=== PATIENT | female | born 1945 | race Caucasian/White ===

== ENCOUNTER → 2018-07-25 12:22 | Outpatient (CLI) | payer MEDICARE, SELFPAY ==
--- NOTE | 2018-07-25 | DI.MG.S_ITS ---
BILATERAL DIGITAL SCREENING MAMMOGRAM 3D/2D WITH CAD: 07/25/2018 CLINICAL: Routine screening. Family history of breast cancer. Comparison is made to exams dated: 05/26/2017 mammogram, 04/01/2016 mammogram, and 02/27/2015 mammogram - [facility]. The tissue of both breasts is extremely dense, which lowers the sensitivity of mammography. Current study was also evaluated with a Computer Aided Detection (CAD) system. There are benign post operative findings in the left breast. There also are benign calcifications in both breasts. No significant masses, calcifications, or other findings are seen in either breast. There has been no significant interval change. IMPRESSION: There is no mammographic evidence of malignancy. A 1 year screening mammogram is recommended. This exam was interpreted at Station ID: [id number]. NOTE: For mammograms, a report in lay terms will be sent to the patient. Approximately 15% of breast malignancies will not be visualized mammographically. In the management of a palpable breast mass, a negative mammogram must not discourage biopsy of a clinically suspicious lesion. Electronically Signed By: Mina lynn/arfita:07/25/2018 17:30:14 letter sent: Normal Exam ACR BI-RADS Category 2: Benign Finding(s) 3342F
== END ==
PROVIDERS: Family Provider Physician Assistant; PCP Physician Assistant; Visit Provider Physician Assistant
DX: Z12.31 Encounter for screening mammogram for malignant neoplasm of breast (principal); Z80.3 Family history of malignant neoplasm of breast
CPT/HCPCS: 77063; 77067

== ENCOUNTER → 2018-07-26 10:44 | Outpatient (CLI) | payer MEDICARE, SELFPAY ==
--- NOTE | 2018-07-26 | DI.RAD.S_ITS ---
PROCEDURE: XR HAND LT MIN 3V INDICATIONS: BILATERAL HAND PAIN TECHNIQUE: A 3 views of the hand(s) acquired. COMPARISON: None. FINDINGS: Bones: No fractures or dislocations. Carpal bones are normally aligned. No suspicious bony lesions. There is an corticated ossicle adjacent to the ulnar styloid. There is degenerative joint disease, moderate to severe at the first carpal metacarpal joint, and mild to moderate at multiple interphalangeal joints. Soft tissues: No suspicious soft tissue calcifications. IMPRESSION: 1. Degenerative disease. 2. Old trauma versus an accessory ossicle over the ulnar styloid. Dictated by: Ki Acevedo M.D. on 07/26/2018 at 15:06 Approved by: Ki Acevedo M.D. on 07/26/2018 at 15:09
--- NOTE | 2018-07-26 | DI.RAD.S_ITS ---
PROCEDURE: XR HAND RT MIN 3V INDICATIONS: BILATERAL HAND PAIN TECHNIQUE: 3 views of the hand(s) acquired. COMPARISON: None. FINDINGS: Bones: No fractures or dislocations. Carpal bones are normally aligned. No suspicious bony lesions. Your first MC joint degeneration and subluxation. Diffuse interphalangeal degenerative spurring. Lucency projecting in the distal phalanx of the right ring finger is indeterminate. This could represent cyst or erosion. Additional small marginal lucency seen at the IP joints of the index and middle finger as well as PIP joint of the index finger. Soft tissues: No suspicious soft tissue calcifications. 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 Lucencies at the DIP joints of the ring, index and middle finger as well as the DIP joint of the index finger, possibly erosions although technically nonspecific. Recommend clinical correlation. Dictated by: Barney Whitehead M.D. on 07/26/2018 at 14:12 Approved by: Barney Whitehead M.D. on 07/26/2018 at 14:19
== END ==
PROVIDERS: Family Provider Physician Assistant; PCP Physician Assistant; Visit Provider Physician Assistant
DX: M18.0 Bilateral primary osteoarthritis of first carpometacarpal joints (principal); M19.042 Primary osteoarthritis, left hand; S63.051A Subluxation of other carpometacarpal joint of right hand, initial encounter
CPT/HCPCS: 73130

== ENCOUNTER → 2018-08-05 10:26 | Outpatient (CLI) | payer MEDICARE, SELFPAY ==
[2018-08-05 11:32] LABS: Add Manual Diff / Slide Review NO; Basophils Absolute Auto 0 /uL (0-100); Basophils Percent Auto 0.4 % (0-2); Eosinophils Absolute Auto 100 /uL (0-450); Eosinophils Percent Auto 1.5 % (2-4); Hematocrit 36.2 % (36-46); Hemoglobin 12.4 g/dL (12.0-16.0); Lymphocytes Absolute Auto 1600 /uL (1100-4500); Lymphocytes Percent Auto 41.9 % (25-40); Mean Corpuscular HGB Conc 34.1 % (30-36); Mean Corpuscular Hemoglobin 33.4 PG (26-34); Mean Corpuscular Volume 97.8 fL (80-100); Monocytes Absolute Auto 300 /uL (0-900); Monocytes Percent Auto 8.1 % (3-14); Neutrophils Absolute Auto 1800 /uL (1500-7000); Neutrophils Percent Auto 48.1 % (50-75); Platelet Count 262 X10^3/uL (150-400); Red Cell Distribution Width 13.9 % (11.6-14.8); White Blood Cell Count 3.8 X10^3/uL (4.5-11.0)
[2018-08-05 11:48] LABS: Alanine Aminotransferase 32 IU/L (9-52); Albumin Globulin Ratio 1.7 (1.0-2.8); Alkaline Phosphatase 49 U/L (38-126); Aspartate Aminotransferase 27 IU/L (14-36); BUN Creatinine Ratio 27.1 (6-22); Bilirubin Total 0.5 mg/dL (0.2-1.3); Blood Urea Nitrogen 19 mg/dL (7-17); Calcium 10.4 mg/dL (8.4-10.2); Carbon Dioxide 29 mmol/L (22-32); Chloride 101 mmol/L (98-107); Estimated Glomerular Filt Rate > 60.0 mL/min (>60); Globulin 2.9 g/dL (1.7-4.1); Glucose 88 mg/dL (80-110); HEMOLYSIS < 15 (0-50); Potassium 4.4 mmol/L (3.4-5.1); Sodium 141 mmol/L (137-145); Total Protein 7.9 g/dL (6.3-8.2)
[2018-08-05 11:49] LABS: C-Reactive Protein Quant < 0.5 mg/dL (<1.0); Erythrocyte Sedimentation Rate 8 MM/HR (0-20); Rheumatoid Factor 24.5 IU/mL (<12.0)
[2018-08-05 11:59] LABS: Vitamin D 25 Hydroxy (D3) 84.6 ng/mL (30.0-100.0)
== END ==
PROVIDERS: PCP Physician Assistant; Visit Provider Physician Assistant
DX: M06.89 Other specified rheumatoid arthritis, multiple sites (principal); E55.9 Vitamin D deficiency, unspecified
CPT/HCPCS: 80053; 82306; 85025; 85651; 86140; 86200; 86430

== ENCOUNTER → 2018-08-11 15:13 | Outpatient (CLI) | payer MEDICARE, SELFPAY | PROVIDERS: PCP Physician Assistant; Visit Provider Physician Assistant | DX: M85.852 Other specified disorders of bone density and structure, left thigh (principal); Z78.0 Asymptomatic menopausal state; Z90.722 Acquired absence of ovaries, bilateral; Z87.891 Personal history of nicotine dependence | CPT/HCPCS: 77080 ==

== ENCOUNTER → 2018-09-28 11:36 | Outpatient (CLI) | payer MEDICARE, SELFPAY ==
[2018-09-28 12:36] LABS: Alanine Aminotransferase 17 IU/L (9-52); Albumin 4.6 g/dL (3.5-5.0); Albumin Globulin Ratio 1.8 (1.0-2.8); Alkaline Phosphatase 57 U/L (38-126); Aspartate Aminotransferase 26 IU/L (14-36); BUN Creatinine Ratio 21.4 (6-22); Bilirubin Total 0.5 mg/dL (0.2-1.3); Blood Urea Nitrogen 15 mg/dL (7-17); Calcium 9.7 mg/dL (8.4-10.2); Carbon Dioxide 29 mmol/L (22-32); Chloride 105 mmol/L (98-107); Estimated Glomerular Filt Rate > 60.0 mL/min (>60); Globulin 2.5 g/dL (1.7-4.1); Glucose 94 mg/dL (80-110); HEMOLYSIS < 15 (0-50); Potassium 3.7 mmol/L (3.4-5.1); Sodium 140 mmol/L (137-145); Total Protein 7.1 g/dL (6.3-8.2)
[2018-09-30 17:17] LABS: Parathyroid Hormone Int 19 pg/mL (14-64)
== END ==
PROVIDERS: PCP Physician Assistant; Visit Provider Physician Assistant
DX: E83.52 Hypercalcemia (principal)
CPT/HCPCS: 36415; 80053; 83970

== ENCOUNTER → 2018-12-13 08:03 | Outpatient (CLI) | payer MEDICARE, SELFPAY ==
--- NOTE | 2018-12-13 08:05 | DI.RAD.S_ITS ---
PROCEDURE: XR BONE SURVEY INDICATIONS: monoclonal gammopathy TECHNIQUE: Multiple views obtained of various bony structures as described below. COMPARISON: [facility], , CHEST 2 VIEW, 04/22/2015, 15:10. FINDINGS: Skull (lateral): Multiple lucencies are present. No fractures. Thoracic spine (AP, lateral): No suspicious bony lesions. No acute vertebral body compression fractures. Lumbar spine (AP, lateral): No suspicious bony lesions. Scoliosis. There is severe degenerative disc adisease at L2-L3 at L3-L4. No acute vertebral body compression fractures. Pelvis (AP): No suspicious bony lesions. No fractures. Overlying soft tissues appear unremarkable. Right and left humeri (AP): Small lucencies are suspected bilaterally. No fractures. Overlying soft tissues appear unremarkable. A small ossicle next to the right humeral head. Right and left femurs (AP): No suspicious bony lesions. No fractures. Overlying soft tissues appear unremarkable. IMPRESSION: Lucent lesions in skull and possibly humeri bilaterally. Dictated by: Ki Acevedo M.D. on 12/13/2018 at 9:18 Approved by: Ki Acevedo M.D. on 12/13/2018 at 9:34
== END ==
PROVIDERS: PCP Physician Assistant
DX: D47.2 Monoclonal gammopathy (principal); M89.9 Disorder of bone, unspecified
CPT/HCPCS: 77075

== ENCOUNTER → 2019-01-04 13:43 | Outpatient (CLI) | payer MEDICARE, SELFPAY ==
--- NOTE | 2019-01-04 13:46 | DI.MRI.S_ITS ---
PROCEDURE: MR BONE MARROW INDICATIONS: monoclonal gammopathy, ?lytic lesions TECHNIQUE: Noncontrast sagittal T1 spin echo and STIR through the spine; coronal T1 spin echo and STIR through the bony thorax, coronal T1 spin echo and STIR through the bony pelvis and femurs. COMPARISON: [facility], CR, XR BONE SURVEY, 12/13/2018, 8:12. FINDINGS: Image quality: Excellent. Spine: All visualized vertebral bodies are normally aligned. No acute or subacute vertebral body compression fractures. The bone marrow demonstrates no suspicious lesions or signal abnormalities except at the C4 and C5 vertebral bodies where on STIR imaging elevated marrow space fluid signal is present with suppressed fat signal (series 4 image 7 versus series 8 image 7). This indicates increased cellularity within those 2 segments of the mid cervical spine. A more characteristic appearance of degenerative disc disease with adjacent reactive marrow changes seen at L3-4 of the mid lumbosacral spine. The central spinal canal is of normal overall caliber. The visualized spinal cord demonstrates normal intramedullary signal. The conus is in expected position. No epidural or paravertebral soft tissue masses. Pelvis and hips: The bone marrow demonstrates normal signal throughout. No pelvic ring or sacral pathologic or insufficiency fractures. Physiologic amounts of hip joint fluid are present. No joint degeneration or soft tissue bursal fluid collections. Soft tissues: No free pelvic fluid. No pathologic pelvic or inguinal adenopathy. Visualized bowel loops appear normal in caliber. Limited images through the genitourinary tract demonstrate no abnormalities. The muscles demonstrate normal overall bulk and internal signal. IMPRESSION: No osteolytic lesions are seen through the axial and appendicular skeleton. Note is made of focal marrow space hypercellularity involving the C5 and C6 vertebral body marrow space, where mild to moderate degenerative disc disease is present. This degree of marrow abnormality in the setting of relatively mild degenerative change raises concern for marrow space neoplastic infiltration within this portion of the cervical spine. No soft tissue mass or epidural impingement is associated. Through the long bones there is a expected degree of mild heterogeneity of the marrow space for age. The degenerative disc disease at L3-4 is moderately severe, with reactive endplate and marrow space reaction abutting the disc space is an expected finding (in contrast to the appearance at the C5 and C6 vertebral bodies discussed above). Dictated by: Jaya Haq M.D. on 01/04/2019 at 16:18 Approved by: Jaya Haq M.D. on 01/04/2019 at 16:29
== END ==
PROVIDERS: PCP Physician Assistant
DX: D47.2 Monoclonal gammopathy (principal); M50.322 Other cervical disc degeneration at C5-C6 level; M51.36 Other intervertebral disc degeneration, lumbar region
CPT/HCPCS: 77084

== ENCOUNTER → 2019-01-11 14:40 | Oncology outpatient (ONC) | payer MEDICARE, SELFPAY ==
[2018-12-07 08:39] VITALS: BP 131/68; PULSE 57; RESP 18; TEMP 36.3; O2SAT 98
--- NOTE | 2018-12-07 09:08 | ONC.CONS ---
History of Present Illness - Data of Consult Consult date: 12/07/18 Primary Care Provider: Candis Patel PA-C - Consult Narrative Narrative: Diagnosis: Monoclonal gammopathy History of present illness: Nahomi Rae is a 73 year old female who is referred for further evaluation of a newly discovered monoclonal gammopathy. The patient reports that she had been feeling generally well but was having some pain and swelling in the joints in her hands. She was tested for rheumatoid factor and was positive. Because of this, she was referred to Rheumatology. As part of her evaluation, she had an SPEP done. It showed a trace paraprotein at 0.1 grams/deciliter. I do not see the results of any immuno fixation however. Urine did not show any monoclonal protein. Her creatinine and calcium were normal. White count was 5.1 platelets were normal, hemoglobin was 11.3 and hematocrit was 33.5 in September. In August, her hematocrit had been normal. The patient has not noticed any pain outside of her hands. She notes that her appetite has been good. She has not been losing any weight. No fevers chills or sweats. No shortness of breath or cough. No GI complaints. She has had a history of anemia associated with a a illness that involve sepsis and liver disease. She has since recovered. She has never required a transfusion. Her past medical history is notable for arthritis. She has been intolerant to aspirin and to anti-inflammatories in the past. She did have a history of a kidney infection that led to sepsis and liver problems but has recovered from that. She has had a prior cervical fusion. She has had a dislocation of her collarbone. She has otherwise been quite healthy. Her family history is notable for her father having had lung cancer. There is no family history of blood dyscrasias. Social history: She is a retired nurse. She has a distant history of smoking but quit at age 30. She does have about 2 drinks per night. CC: Power Ball MD Home Medications and Allergies Home Medications Medication Instructions Recorded Confirmed Type Dha 450 mg DAILY 12/07/18 12/07/18 History Dhea 25 mg DAILY 12/07/18 12/07/18 History Estratest DAILY 12/07/18 History Tumeric 1,000 mg DAILY 12/07/18 12/07/18 History calcium carbonate-vitamin D3 1 mg 2XW 12/07/18 12/07/18 History [Calcium 600 + D(3)] cholecalciferol (vitamin D3) 2,000 unit PO DAILY 12/07/18 12/07/18 History [Vitamin D3] diclofenac sodium 2 g TOPICAL BID 12/07/18 12/07/18 History glucosamine sulfate [Glucosamine] 750 mg PO BID 12/07/18 12/07/18 History latanoprost 0.005 % OPHTHALMIC (EYE) BID 12/07/18 12/07/18 History selenium 200 mg DAILY 12/07/18 12/07/18 History Allergies Allergy/AdvReac Type Severity Reaction Status Date / Time aspirin [ASPIRIN] Allergy Unknown Unverified 09/08/17 12:04 NSAIDS (Non-Steroidal Allergy Unknown Unverified 09/08/17 12:04 Anti-Inflamma [NSAIDS (NON-STEROIDAL ANTI-INFLAMMA] phenytoin [From DILANTIN] Allergy Unknown Unverified 09/08/17 12:04 Sulfa (Sulfonamide Allergy Unknown Unverified 09/08/17 12:04 Antibiotics) [SULFA (SULFONAMIDE ANTIBIOTICS)] Medical History - Medical, Surgical, Family History Surgical History: Surgical History (Updated 09/28/17 @ 05:40 by Conversion Provider) History of carpal tunnel repair Status post hysterectomy Status post rotator cuff repair Review of Systems - Patient Self-Reported Symptoms SR Musculoskeletal issues: Joint pain or swelling, Cold hands or feet Constitutional: normal activity level, no weight loss Cardiovascular: no chest pain Respiratory: no shortness of breath Gastrointestinal: no change in appetite Musculoskeletal: pain, swelling Integumentary (breast): no lumps Hematologic/Lymphatic: no enlarged lymph nodes Exam Vital signs: Vital Signs Temp Pulse Resp BP Pulse Ox 12/07/18 08:39 97.3 F L 57 L 18 131/68 98 Intake and Output 12/06/18 12/07/18 12/07/18 23:59 07:59 15:59 Other: Weight 44.5 kg Patient Weight 12/07/18 23:59 Weight 44.5 kg - Constitutional positive no acute distress, positive average body habitus - Routine HEENT Exam Head: Present: normocephalic, atraumatic Eye: Present: EOMI, PERRL. Absent: conjunctival icterus, scleral injection ENT: Present: mucous membranes moist, oropharynx clear - Routine Neck Exam Present: supple. Absent: lymphadenopathy, thyromegaly - Routine Respiratory Exam Present: Clear to auscultation bilaterally. Absent: rales, wheezes - Routine Cardiovascular Exam Present: RRR, S1, S2. Absent: murmur - Routine Abdominal Exam Present: soft, normoactive bowel sounds. Absent: tenderness, organomegaly, mass - Routine Extremities Exam Present: joint swelling. Absent: cyanosis, clubbing, edema - Routine Back/Spine Exam Back/Spine: Absent: vertebral tenderness - Routine Skin Exam Present: intact. Absent: petechiae, rash - Routine Neurological Exam Present: alert, oriented X3 - Routine Psychiatric Exam Present: normal affect, normal thought process Results - Imaging Additional studies: Procedures Closed [endoscopic] biopsy of large intestine (03/16/12) Assessment and Plan (1) Monoclonal gammopathy Current visit: Yes Status: Acute 73-year-old woman with newly discovered low level monoclonal protein at 0.1 grams/deciliter. On 1 occasion she had a mild anemia but just prior to that her hematocrit was normal. 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 We will plan on checking an immunofixation as well as serum free light chains. She will also need a skeletal survey. We will also repeat a CBC. She does least on 1 occasion have a mild anemia. Also past for iron deficiency, B12 or folate deficiency and a TSH. She will return to clinic in about 2 weeks for follow-up to review results.
[2018-12-07 09:52] LABS: Add Manual Diff / Slide Review NO; Basophils Absolute Auto 0 /uL (0-100); Basophils Percent Auto 0.3 % (0-2); Eosinophils Absolute Auto 100 /uL (0-450); Eosinophils Percent Auto 1.7 % (2-4); Hematocrit 34.7 % (36-46); Lymphocytes Absolute Auto 1200 /uL (1100-4500); Lymphocytes Percent Auto 37.3 % (25-40); Mean Corpuscular HGB Conc 34.5 % (30-36); Mean Corpuscular Hemoglobin 33.5 PG (26-34); Mean Corpuscular Volume 97.2 fL (80-100); Monocytes Absolute Auto 300 /uL (0-900); Monocytes Percent Auto 9.7 % (3-14); Neutrophils Absolute Auto 1600 /uL (1500-7000); Platelet Count 273 X10^3/uL (150-400); Red Blood Cell Count 3.57 X10^6/uL (4.0-5.2); Red Cell Distribution Width 13.5 % (11.6-14.8); White Blood Cell Count 3.2 X10^3/uL (4.5-11.0)
[2018-12-07 11:37] LABS: HEMOLYSIS < 15 (0-50); Iron 124 ug/dL (37-170)
[2018-12-07 11:47] LABS: Percent Iron Saturation 36 % (15-50); Total Iron Binding Capacity 342 ug/dL (265-497); Transferrin 291 mg/dL (206-381)
[2018-12-07 12:10] LABS: Thyroid Stimulating Hormone 2.67 uIU/mL (0.47-4.68)
[2018-12-07 12:44] LABS: Folate 15.1 ng/mL (2.76-20.0); Vitamin B12 625 pg/mL (239-931)
[2018-12-09 13:50] LABS: Free Kappa Light Chain 9.3 mg/L (3.3-19.4); Free Lambda 7.7 mg/L (5.7-26.3)
[2018-12-28 10:01] VITALS: BP 135/62; PULSE 62; RESP 18; TEMP 36.8; O2SAT 99
--- NOTE | 2018-12-28 10:28 | ONC.PN ---
PN -Subjective Interval history: Diagnosis: Monoclonal gammopathy Interval history: The patient is a 73-year-old woman who has recently been diagnosed with rheumatoid arthritis. As part of an evaluation she had an SPEP done. It showed a low level paraprotein at 0.1 grams/deciliter. Since her last visit here, she has started on Plaquenil. She has been tolerating it well thus far. She denies any new aches or pains. No fevers chills or sweats. No shortness of breath or cough. No unusual bleeding or bruising. She denies any other changes in her health. - Patient Self-Reported Symptoms SR Musculoskeletal issues: Joint pain or swelling, Cold hands or feet Home Medications and Allergies Home Medications Medication Instructions Recorded Confirmed Type Dha 450 mg DAILY 12/07/18 12/28/18 History Dhea 25 mg DAILY 12/07/18 12/28/18 History Estratest DAILY 12/07/18 History Tumeric 1,000 mg DAILY 12/07/18 12/07/18 History calcium carbonate-vitamin D3 1 mg 2XW 12/07/18 12/07/18 History [Calcium 600 + D(3)] cholecalciferol (vitamin D3) 2,000 unit PO DAILY 12/07/18 12/07/18 History [Vitamin D3] diclofenac sodium 2 g TOPICAL BID 12/07/18 12/07/18 History glucosamine sulfate [Glucosamine] 750 mg PO BID 12/07/18 12/07/18 History latanoprost 0.005 % OPHTHALMIC (EYE) BID 12/07/18 12/07/18 History selenium 200 mg DAILY 12/07/18 12/07/18 History hydroxychloroquine [Plaquenil] 200 mg PO DAILY 12/28/18 12/28/18 History Allergies Allergy/AdvReac Type Severity Reaction Status Date / Time aspirin [ASPIRIN] Allergy Unknown Unverified 09/08/17 12:04 NSAIDS (Non-Steroidal Allergy Unknown Unverified 09/08/17 12:04 Anti-Inflamma [NSAIDS (NON-STEROIDAL ANTI-INFLAMMA] phenytoin [From DILANTIN] Allergy Unknown Unverified 09/08/17 12:04 Sulfa (Sulfonamide Allergy Unknown Unverified 09/08/17 12:04 Antibiotics) [SULFA (SULFONAMIDE ANTIBIOTICS)] Exam Vital signs: Vital Signs Temp Pulse Resp BP Pulse Ox 12/28/18 10:01 98.3 F 62 18 135/62 99 Intake and Output 12/27/18 12/28/18 12/28/18 23:59 07:59 15:59 Other: Weight 43.7 kg Patient Weight 12/28/18 23:59 Weight 43.7 kg - Constitutional positive no acute distress, positive average body habitus Comments: She is not further examined. Results - Labs Laboratory Last Values WBC 3.2 X10^3/uL (4.5-11.0) L 12/07/18 09:21 RBC 3.57 X10^6/uL (4.0-5.2) L 12/07/18 09:21 Hgb 12.0 g/dL (12.0-16.0) 12/07/18 09:21 Hct 34.7 % (36-46) L 12/07/18 09:21 MCV 97.2 fL (80-100) 12/07/18 09:21 MCH 33.5 PG (26-34) 12/07/18 09:21 MCHC 34.5 % (30-36) 12/07/18 09:21 RDW 13.5 % (11.6-14.8) 12/07/18 09:21 Plt Count 273 X10^3/uL (150-400) 12/07/18 09:21 Neut % (Auto) 51.0 % (50-75) 12/07/18 09:21 Lymph % (Auto) 37.3 % (25-40) 12/07/18 09:21 [place] % (Auto) 9.7 % (3-14) 12/07/18 09:21 Eos % (Auto) 1.7 % (2-4) L 12/07/18 09:21 Baso % (Auto) 0.3 % (0-2) 12/07/18 09:21 Neut # (Auto) 1600 /uL (4507-5221) 12/07/18 09:21 Lymph # (Auto) 1200 /uL (1716-6437) 12/07/18 09:21 [place] # (Auto) 300 /uL (0-900) 12/07/18 09:21 Eos # (Auto) 100 /uL (0-450) 12/07/18 09:21 Baso # (Auto) 0 /uL (0-100) 12/07/18 09:21 Iron 124 ug/dL (37-170) 12/07/18 09:21 TIBC 342 ug/dL (265-497) 12/07/18 09:21 % Saturation 36 % (15-50) 12/07/18 09:21 Transferrin 291 mg/dL (206-381) 12/07/18 09:21 Ferritin 138.0 ng/mL (11.1-264) 12/07/18 09:21 Vitamin B12 625 pg/mL (239-931) 12/07/18 09:21 Folate 15.1 ng/mL (2.76-20.0) 12/07/18 09:21 TSH 2.67 uIU/mL (0.47-4.68) 12/07/18 09:21 Serum Immunofixation See note 12/07/18 09:21 Free [place] Light Chains 9.3 mg/L (3.3-19.4) 12/07/18 09:21 Free Lambda Light Chain 7.7 mg/L (5.7-26.3) 12/07/18 09:21 Free [place]/Lambda Ratio 1.20 (0.26-1.65) 12/07/18 09:21 - Imaging Additional studies: Skeletal survey was reviewed. The report indicated possible lytic lesions in the skull and in the humerus bilaterally, however by my review, I do not see any obvious lytic lesions. Assessment and Plan (1) Monoclonal gammopathy Current visit: Yes Status: Acute 73-year-old woman with newly discovered low level monoclonal protein at 0.1 grams/deciliter. On 1 occasion she had a mild anemia but just prior to that her hematocrit was normal. 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 Her serum free light chains were normal. Her skeletal survey I think is equivocal. Will plan on getting an MRI of the bone marrow to further evaluate. If that appears to be normal, I think we will just follow her expectantly. She could return here in 6 months for follow-up if that is the case. On the other hand, if there are lytic lesions apparent, she will likely require a bone marrow biopsy. She states that she would need sedation if she required a biopsy.
[2019-01-11 15:00] VITALS: BP 131/64; PULSE 65; RESP 18; TEMP 36.8; O2SAT 98
--- NOTE | 2019-01-11 15:29 | P.PNONC_ITS ---
PN -Subjective Interval history: Diagnosis: Monoclonal gammopathy Interval history: The patient is a 73-year-old woman who has recently been diagnosed with rheumatoid arthritis. As part of an evaluation she had an SPEP done. It showed a low level paraprotein at 0.1 grams/deciliter. Immunofixation showed 2 IgG kappa paraproteins. She did not have any renal insufficiency or hypercalcemia. On 1 occasion she had a very mild anemia that resolved. Skeletal survey showed questionable lytic lesion in the skull. A bone marrow MRI was done. Reviewed those results today. It showed no evidence of any lytic lesions. There were couple areas of increased marrow uptake 1 in the lumbar spine consistent with inflammation. There is another in the cervical spine. Metastatic disease could not be ruled out. The patient does have a history of a ruptured disc in the cervical spine area though. Today, she is feeling well. Her rheumatoid arthritis has been under good control. She notes some stiffness in the morning but is not having any pain. Appetite and energy level have been good. No fevers chills or sweats. She has not noted any adenopathy. She had her are planning a long camping trip. The be gone for about a month. She is also planning a 2nd opinion in [place] later this week. She denies any other changes in her health. - Patient Self-Reported Symptoms SR Musculoskeletal issues: Joint pain or swelling, Cold hands or feet Home Medications and Allergies Home Medications Medication Instructions Recorded Confirmed Type Dha 450 mg DAILY 12/07/18 12/28/18 History Dhea 25 mg DAILY 12/07/18 12/28/18 History Estratest DAILY 12/07/18 History Tumeric 1,000 mg DAILY 12/07/18 12/07/18 History calcium carbonate-vitamin D3 1 mg 2XW 12/07/18 12/07/18 History [Calcium 600 + D(3)] cholecalciferol (vitamin D3) 2,000 unit PO DAILY 12/07/18 12/07/18 History [Vitamin D3] diclofenac sodium 2 g TOPICAL BID 12/07/18 12/07/18 History glucosamine sulfate [Glucosamine] 750 mg PO BID 12/07/18 12/07/18 History latanoprost 0.005 % OPHTHALMIC (EYE) BID 12/07/18 12/07/18 History selenium 200 mg DAILY 12/07/18 12/07/18 History hydroxychloroquine [Plaquenil] 200 mg PO DAILY 12/28/18 12/28/18 History Allergies Allergy/AdvReac Type Severity Reaction Status Date / Time aspirin [ASPIRIN] Allergy Unknown Unverified 09/08/17 12:04 NSAIDS (Non-Steroidal Allergy Unknown Unverified 09/08/17 12:04 Anti-Inflamma [NSAIDS (NON-STEROIDAL ANTI-INFLAMMA] phenytoin [From DILANTIN] Allergy Unknown Unverified 09/08/17 12:04 Sulfa (Sulfonamide Allergy Unknown Unverified 09/08/17 12:04 Antibiotics) [SULFA (SULFONAMIDE ANTIBIOTICS)] Exam Vital signs: Vital Signs Temp Pulse Resp BP Pulse Ox 01/11/19 15:00 98.2 F 65 18 131/64 98 Intake and Output 01/10/19 01/11/19 01/11/19 23:59 07:59 15:59 Other: Weight 42.6 kg Patient Weight 01/11/19 23:59 Weight 42.6 kg - Constitutional positive no acute distress, positive average body habitus Comments: She is not further examined. Results - Labs Laboratory Last Values WBC 3.2 X10^3/uL (4.5-11.0) L 12/07/18 09:21 RBC 3.57 X10^6/uL (4.0-5.2) L 12/07/18 09:21 Hgb 12.0 g/dL (12.0-16.0) 12/07/18 09:21 Hct 34.7 % (36-46) L 12/07/18 09:21 MCV 97.2 fL (80-100) 12/07/18 09:21 MCH 33.5 PG (26-34) 12/07/18 09:21 MCHC 34.5 % (30-36) 12/07/18 09:21 RDW 13.5 % (11.6-14.8) 12/07/18 09:21 Plt Count 273 X10^3/uL (150-400) 12/07/18 09:21 Neut % (Auto) 51.0 % (50-75) 12/07/18 09:21 Lymph % (Auto) 37.3 % (25-40) 12/07/18 09:21 [place] % (Auto) 9.7 % (3-14) 12/07/18 09:21 Eos % (Auto) 1.7 % (2-4) L 12/07/18 09:21 Baso % (Auto) 0.3 % (0-2) 12/07/18 09:21 Neut # (Auto) 1600 /uL (1751-4872) 12/07/18 09:21 Lymph # (Auto) 1200 /uL (5463-7214) 12/07/18 09:21 [place] # (Auto) 300 /uL (0-900) 12/07/18 09:21 Eos # (Auto) 100 /uL (0-450) 12/07/18 09:21 Baso # (Auto) 0 /uL (0-100) 12/07/18 09:21 Iron 124 ug/dL (37-170) 12/07/18 09:21 TIBC 342 ug/dL (265-497) 12/07/18 09:21 % Saturation 36 % (15-50) 12/07/18 09:21 Transferrin 291 mg/dL (206-381) 12/07/18 09:21 Ferritin 138.0 ng/mL (11.1-264) 12/07/18 09:21 Vitamin B12 625 pg/mL (239-931) 12/07/18 09:21 Folate 15.1 ng/mL (2.76-20.0) 12/07/18 09:21 TSH 2.67 uIU/mL (0.47-4.68) 12/07/18 09:21 Serum Immunofixation See note 12/07/18 09:21 Free [place] Light Chains 9.3 mg/L (3.3-19.4) 12/07/18 09:21 Free Lambda Light Chain 7.7 mg/L (5.7-26.3) 12/07/18 09:21 Free [place]/Lambda Ratio 1.20 (0.26-1.65) 12/07/18 09:21 - Imaging Additional studies: Procedures Closed [endoscopic] biopsy of large intestine (03/16/12) Assessment and Plan (1) Monoclonal gammopathy Current visit: Yes Status: Acute 73-year-old woman with newly discovered low level monoclonal protein at 0.1 grams/deciliter. On 1 occasion she had a mild anemia but just prior to that her hematocrit was normal. Her serum free light chains were normal. Her skeletal survey I think is equivocal. MRI of the bone marrow does not show any lytic lesions. There are couple of focal areas with increased marrow signal at I think or most likely related to inflammation. She has no symptoms. I think that this is most consistent with MGUS. She will return to clinic in about 6 months for follow-up.
== END ==
PROVIDERS: PCP Physician Assistant
DX: D47.2 Monoclonal gammopathy (principal); M06.9 Rheumatoid arthritis, unspecified
CPT/HCPCS: 36415; 82607; 82728; 82746; 82784; 83540; 83550; 83883; 84155; 84443; 85025; 86334; 99205; 99213; 99215

== ENCOUNTER → 2019-08-11 07:39 | Outpatient (CLI) | payer MEDICARE, SELFPAY ==
--- NOTE | 2019-08-11 | DI.MG.S_ITS ---
BILATERAL DIGITAL SCREENING MAMMOGRAM 3D/2D WITH CAD: 08/11/2019 CLINICAL: Routine screening. Family history of breast cancer. Comparison is made to exams dated: 07/25/2018 mammogram, 05/26/2017 mammogram, and 04/01/2016 mammogram - [facility]. The tissue of both breasts is extremely dense, which lowers the sensitivity of mammography. Current study was also evaluated with a Computer Aided Detection (CAD) system. There are benign calcifications in both breasts. There also are benign post operative findings in the left breast. No significant masses, calcifications, or other findings are seen in either breast. There has been no significant interval change. IMPRESSION: There is no mammographic evidence of malignancy. A 1 year screening mammogram is recommended. This exam was interpreted at Station ID: [id number]. NOTE: For mammograms, a report in lay terms will be sent to the patient. Approximately 15% of breast malignancies will not be visualized mammographically. In the management of a palpable breast mass, a negative mammogram must not discourage biopsy of a clinically suspicious lesion. Electronically Signed By: Mina lynn/rafita:08/11/2019 10:26:49 letter sent: Normal Exam ACR BI-RADS Category 2: Benign Finding(s) 3342F
== END ==
PROVIDERS: PCP Physician Assistant; Referring Provider Physician Assistant; Visit Provider Physician Assistant
DX: Z12.31 Encounter for screening mammogram for malignant neoplasm of breast (principal); Z80.3 Family history of malignant neoplasm of breast
CPT/HCPCS: 77063; 77067

== ENCOUNTER → 2020-03-22 15:54 | Outpatient (CLI) | payer MEDICARE, SELFPAY ==
--- NOTE | 2020-03-22 | DI.RAD.S_ITS ---
PROCEDURE: XR HAND RT MIN 3V INDICATIONS: RHEUMATIOD ARTHRITIS TECHNIQUE: 3 views of the hand(s) acquired. COMPARISON: [facility], CR, XR HAND LT MIN 3V, 03/22/2020, 15:58. [facility], CR, XR HAND LT MIN 3V, 07/26/2018, 10:54. FINDINGS: Bones: No fractures or dislocations. Degenerative osteoarthritis is present at the interphalangeal joints, and also at the base of the 1st metacarpal. Overall the degree of degeneration is moderate to moderately severe, but erosive changes are not found. Carpal bones are normally aligned. No suspicious bony lesions. Soft tissues: No suspicious soft tissue calcifications. IMPRESSION: Moderate to moderately severe degenerative osteoarthritis without definite underlying erosive arthritis.. Dictated by: Jaya Haq M.D. on 03/22/2020 at 17:04 Approved by: Jaya Haq M.D. on 03/22/2020 at 17:07
--- NOTE | 2020-03-22 | DI.RAD.S_ITS ---
PROCEDURE: XR HAND LT MIN 3V INDICATIONS: RHEUMATIOD ARTHRITIS TECHNIQUE: 3 views of the hand(s) acquired. COMPARISON: [facility], CR, XR HAND LT MIN 3V, 07/26/2018, 10:54. [facility], CR, XR HAND RT MIN 3V, 07/26/2018, 10:53. FINDINGS: Bones: No fractures or dislocations. Carpal bones are normally aligned. No suspicious bony lesions. Severe degenerative osteoarthritic change at the base of the 1st metacarpal is present, no erosive changes are found. Soft tissues: No suspicious soft tissue calcifications. 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 Moderate osteoarthritis elsewhere. No definite erosive arthritis. Dictated by: Jaya aHq M.D. on 03/22/2020 at 17:03 Approved by: Jaya Haq M.D. on 03/22/2020 at 17:03
[2020-03-22 17:13] LABS: Erythrocyte Sedimentation Rate 7 MM/HR (0-20)
[2020-03-22 17:20] LABS: Alanine Aminotransferase 19 IU/L (<35); Albumin 4.6 g/dL (3.5-5.0); Albumin Globulin Ratio 1.8 (1.0-2.8); Alkaline Phosphatase 52 U/L (38-126); Aspartate Aminotransferase 30 IU/L (14-36); BUN Creatinine Ratio 22.4 (6-22); Bilirubin Total 0.3 mg/dL (0.2-1.3); Blood Urea Nitrogen 15 mg/dL (7-17); Calcium 9.4 mg/dL (8.4-10.2); Carbon Dioxide 30 mmol/L (22-32); Chloride 104 mmol/L (98-107); Estimated Glomerular Filt Rate > 60.0 mL/min (>60); Globulin 2.6 g/dL (1.7-4.1); Glucose 96 mg/dL (80-110); HEMOLYSIS < 15 (0-50); Potassium 4.1 mmol/L (3.4-5.1); Sodium 139 mmol/L (137-145); Total Protein 7.2 g/dL (6.3-8.2)
[2020-03-22 17:26] LABS: C-Reactive Protein Quant < 0.5 mg/dL (<1.0)
== END ==
PROVIDERS: PCP Physician Assistant; Referring Provider Internal Medicine Rheumatology; Visit Provider Internal Medicine Rheumatology
DX: M05.79 Rheumatoid arthritis with rheumatoid factor of multiple sites without organ or systems involvement (principal); M19.042 Primary osteoarthritis, left hand
CPT/HCPCS: 36415; 73130; 80053; 85651; 86140

== ENCOUNTER → 2020-09-03 15:32 | Outpatient (CLI) | payer MEDICARE, OTHER, SELFPAY ==
--- NOTE | 2020-09-03 | DI.MG.S_ITS ---
BILATERAL DIGITAL SCREENING MAMMOGRAM 3D/2D WITH CAD: 09/03/2020 CLINICAL: Routine screening. Family history of breast cancer. Comparison is made to exams dated: 08/11/2019 mammogram, 07/25/2018 mammogram, and 05/26/2017 mammogram - [facility]. The tissue of both breasts is extremely dense, which lowers the sensitivity of mammography. Current study was also evaluated with a Computer Aided Detection (CAD) system. There are benign calcifications in both breasts. There also are benign post operative findings in the left breast. No significant masses, calcifications, or other findings are seen in either breast. There has been no significant interval change. IMPRESSION: BENIGN There is no mammographic evidence of malignancy. A 1 year screening mammogram is recommended. This exam was interpreted at Station ID: [id number]. NOTE: For mammograms, a report in lay terms will be sent to the patient. Approximately 15% of breast malignancies will not be visualized mammographically. In the management of a palpable breast mass, a negative mammogram must not discourage biopsy of a clinically suspicious lesion. Electronically Signed By: Mina lynn/rafita:09/03/2020 16:53:54 letter sent: Normal Exam ACR BI-RADS Category 2: Benign Finding(s) 3342F
== END ==
PROVIDERS: PCP Physician Assistant; Referring Provider Physician Assistant; Visit Provider Physician Assistant
DX: Z12.31 Encounter for screening mammogram for malignant neoplasm of breast (principal); Z80.3 Family history of malignant neoplasm of breast
CPT/HCPCS: 77063; 77067

== ENCOUNTER → 2020-11-11 09:47 | Outpatient (CLI) | payer MEDICARE, OTHER, SELFPAY ==
[2020-11-11 10:40] LABS: COVID19 -Nasal RAPID Negative (Negative)
== END ==
PROVIDERS: PCP Physician Assistant; Visit Provider Surgery
DX: Z20.822 Contact with and (suspected) exposure to COVID-19 (principal)
CPT/HCPCS: 87635; C9803

== ENCOUNTER 2020-11-12 07:27 | Day surgery (SDC) | payer MEDICARE, OTHER, SELFPAY ==
[2020-11-12 07:51] VITALS: BP 145/70; PULSE 57; RESP 16; TEMP 36.6; O2SAT 100; BMI 18.3
--- NOTE | 2020-11-12 08:04 | PM.HP.1 ---
History of Present Illness History of Present Illness Date Patient Seen: 11/12/20 Time Patient Seen: 08:04 Chief complaint: SCREENING COLONOSCOPY Narrative: Here for screening colonoscopy. This is her second scope, the last was 9 years ago. No symptoms and no family history for colon cancer. She is retired ER nurse. 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 [facility] Medications and Allergies Home Medications Medication Instructions Recorded Confirmed Type Dha 450 mg DAILY 12/07/18 12/28/18 History Dhea 25 mg DAILY 12/07/18 11/12/20 History Estratest DAILY 12/07/18 History Tumeric 1,000 mg DAILY 12/07/18 12/07/18 History calcium carbonate-vitamin D3 1 mg 2XW 12/07/18 11/12/20 History [Calcium 600 + D(3)] cholecalciferol (vitamin D3) 2,000 unit PO DAILY 12/07/18 11/12/20 History [Vitamin D3] diclofenac sodium 2 g TOPICAL BID 12/07/18 12/07/18 History glucosamine sulfate [Glucosamine] 750 mg PO BID 12/07/18 12/07/18 History latanoprost 0.005 % OPHTHALMIC (EYE) BID 12/07/18 12/07/18 History selenium 200 mg DAILY 12/07/18 12/07/18 History hydroxychloroquine [Plaquenil] 200 mg PO DAILY 12/28/18 12/28/18 History Allergies Allergy/AdvReac Type Severity Reaction Status Date / Time aspirin [ASPIRIN] Allergy Unknown Verified 11/12/20 07:45 NSAIDS (Non-Steroidal Allergy Unknown Verified 11/12/20 07:45 Anti-Inflamma [NSAIDS (NON-STEROIDAL ANTI-INFLAMMA] phenytoin [From DILANTIN] Allergy Unknown Verified 11/12/20 07:45 Sulfa (Sulfonamide Allergy Unknown Verified 11/12/20 07:45 Antibiotics) [SULFA (SULFONAMIDE ANTIBIOTICS)] Review of Systems Review of Systems ROS: Yes All systems reviewed with the patient and are negative except as otherwise documented Exam Const General: cooperative and frail appearing Nutritional Appearance: thin Orientation: alert and oriented x3 HENMT Head: normal to inspection Eyes General: appearance normal, both eyes and all related structures Sclera: sclerae normal Neck Neck: trachea midline Chest Chest: normal inspection of the chest Resp Effort & Inspection: normal respiratory effort and able to speak in complete sentences Auscultation: clear to auscultation bilaterally Cardio Rate: regular rate Rhythm: regular rhythm GI Inspection: normal to inspection Palpation: soft Skin General: no rashes or lesions noted Neuro General: patient alert and patient oriented x3 Cognition: normal cognition Speech: speech normal Extrem General: normal to inspection Psych Appearance: grossly normal Thought Content: normal Judgment: judgment good Assessment & Plan Assessment & Plan narrative: Colon cancer screening for average risk using colonoscopy and moderate sedation COVID-19 COVID-19 status: Negative Time Spent With Patient Time with patient: 15-24 minutes
[2020-11-12] MEDS: LACTATED RINGERS 1,000 ML 75 ML IV (08:09)
--- NOTE | 2020-11-12 08:18 | P.OP.ENDO_ITS ---
Operative Date/Time/Diagnoses Date of procedure: 11/12/20 Time of procedure: 08:18 Pre-op diagnosis: colon cancer screening average risk Post-op diagnosis: same Procedure & Clinicians Study performed: colonoscopy Same procedure as scheduled: Yes Indications: screening for colon cancer Surgeon: Yoli Peterson Procedure Notes SCOAP/Timeout: prior to procedure Procedure in detail: Preop diagnosis: Colon cancer screening Postop diagnosis: The same Operative procedure: Colonoscopy with moderate sedation Surgeon: Senait Peterson MD Anesthetic: Fentanyl 50 mcg and Versed 5 mg Findings: Normal colonoscopy. No diverticula, no polyps. Bowel prep adequate Procedure: Patient is placed in a lateral position. Rectal exam performed showing normal tone no masses. Colonoscope inserted into the rectum and advan dickson to the ileocecal valve with minimal difficulty. Insufflation and extraction of the scope had the above findings. Retroflex was included in the rectum. Impression: Normal colonoscopy, no polyps, no diverticulosis. No mucosal abnormalities Plan: Repeat colonoscopy in 10 years unless otherwise indicated by change in family history or clinical condition Scope withdrawal time: 4 Sedation minutes: 16 Specimen(s): none sent Complications: none Impression: no polyps, no diverticula Post-procedure Recommendations: Colonscopy in 10 years and Continue medication(s) Plan for aftercare: home Follow up: as needed Disposition: PACU
[2020-11-12] MEDS: fentaNYL 250 MCG/5 ML INJ IV (08:27)
[2020-11-12] MEDS: MIDAZOLAM 5 MG/5 ML VIAL IV (08:31)
[2020-11-12 08:41] VITALS: BP 106/50; PULSE 55; RESP 12; TEMP 36.6; O2SAT 96
[2020-11-12 08:46] VITALS: BP 102/51; PULSE 50; RESP 10; O2SAT 97
[2020-11-12 08:51] VITALS: BP 99/50; PULSE 51; RESP 15; O2SAT 98
[2020-11-12 09:08] VITALS: BP 102/52; PULSE 54; RESP 15; TEMP 36.9; O2SAT 95
[2020-11-12 09:18] VITALS: BP 121/77; PULSE 56; RESP 16; TEMP 36.6; O2SAT 99
--- NOTE | 2020-11-12 09:26 | SUR.PHASEII ---
Stable, ready to go, left in stable condition.
== END 2020-11-12 09:26 | disposition home or self-care (01) ==
PROVIDERS: PCP Physician Assistant; Referring Provider Surgery; Visit Provider Surgery
PROC: 0DJD8ZZ Inspection of Lower Intestinal Tract, Via Natural or Artificial Opening Endoscopic (ICD-10-PCS; CPT 45378; principal; 2020-11-12 08:30)
DX: Z12.11 Encounter for screening for malignant neoplasm of colon (principal)
CPT/HCPCS: G0121; 99152; J2250; J3010

== ENCOUNTER → 2021-03-21 14:58 | Outpatient (CLI) | payer MEDICARE, OTHER, SELFPAY ==
[2021-03-21 17:52] LABS: Alanine Aminotransferase 21 IU/L (<35); Aspartate Aminotransferase 34 IU/L (14-36)
== END ==
PROVIDERS: PCP Physician Assistant; Referring Provider Internal Medicine Rheumatology; Visit Provider Internal Medicine Rheumatology
DX: M05.79 Rheumatoid arthritis with rheumatoid factor of multiple sites without organ or systems involvement (principal)
CPT/HCPCS: 36415; 84450; 84460

== ENCOUNTER → 2021-08-28 09:51 | Outpatient (CLI) | payer MEDICARE, OTHER, SELFPAY ==
--- NOTE | 2021-08-28 | DI.RAD.S_ITS ---
PROCEDURE: XR THORACIC SPINE 3V INDICATIONS: Pain in thoracic spine/Cervicalgia TECHNIQUE: 3 views of the thoracic spine were acquired. COMPARISON: [facility], CR, XR LUMBAR SPINE 2-3V, 08/28/2021, 9:48. FINDINGS: Bones: No fractures or dislocations. No suspicious bony lesions. 12 pairs of ribs are noted, and appear intact where visualized. Mild degenerative disease scattered in thoracic spine. Moderate to severe degenerative disc disease in upper lumbar spine. Soft tissues: No paravertebral stripe thickening. There is a calcified nodule in the right upper lung. IMPRESSION: 1. Mild degenerative disc disease disc disease. 2. A calcified nodule in the right lung, likely a calcified granuloma. Dictated by: Ki Acevedo M.D. on 08/28/2021 at 11:48 Approved by: Ki Acevedo M.D. on 08/28/2021 at 11:49
--- NOTE | 2021-08-28 | DI.RAD.S_ITS ---
PROCEDURE: XR CERVICAL SPINE 2V OR 3V INDICATIONS: Pain in thoracic spine/Cervicalgia TECHNIQUE: 3 view(s) of the cervical spine were acquired. COMPARISON: [facility], CR, XR THORACIC SPINE 3V, 08/28/2021, 9:48. FINDINGS: Bones: There is kyphosis, otherwise normal alignment. Fusion of C6-C7. No fractures or dislocations to the T1 level. The lateral masses of C1 appear intact on the odontoid view. No suspicious bony lesions. Severe degenerative disease at C3-C4, C4-C5 and C5-C6, moderate degenerative disease at C7-T1. Bilateral facet arthropathy, moderate to severe at C3-C4, C4-C5. C5-C6. Soft tissues: No prevertebral soft tissue swelling. IMPRESSION: 1. Degenerative disc and facet disease in cervical spine. Dictated by: Ki Acevedo M.D. on 08/28/2021 at 10:44 Approved by: Ki Acevedo M.D. on 08/28/2021 at 11:33
--- NOTE | 2021-08-28 | DI.RAD.S_ITS ---
PROCEDURE: XR LUMBAR SPINE 2-3V INDICATIONS: Pain in thoracic spine/Cervicalgia TECHNIQUE: 3 views of the lumbar spine were acquired. COMPARISON: [facility], CR, XR BONE SURVEY, 12/13/2018, 8:12. [facility], CR, XR THORACIC SPINE 3V, 08/28/2021, 9:48. FINDINGS: Bones: 5 rrc-ldp-gbbsrjg vertebrae are present. There is normal bony alignment. No vertebral body compression fractures. No suspicious bony lesions. Moderate dextroscoliosis with the apex at L3. There is severe degenerative joint disease at L2-L3 and L3-L4, and moderate degenerative joint disease at L1-L2 and L4-L5. Moderate facet arthropathy at L4-L5 and L5-S1. Soft tissues: Overlying bowel gas pattern is normal. No suspicious soft tissue calcifications. There is a large amount of stool in colon. IMPRESSION: 1. Moderate scoliosis. 2. Degenerative disc and facet disease in lumbar spine. Dictated by: Ki Acevedo M.D. on 08/28/2021 at 14:22 Approved by: Ki Acevedo M.D. on 08/28/2021 at 14:24
== END ==
PROVIDERS: PCP Physician Assistant; Referring Provider Physician Assistant; Visit Provider Physician Assistant
DX: M50.31 Other cervical disc degeneration, high cervical region (principal); M47.812 Spondylosis without myelopathy or radiculopathy, cervical region; M51.34 Other intervertebral disc degeneration, thoracic region; M47.814 Spondylosis without myelopathy or radiculopathy, thoracic region; J98.4 Other disorders of lung
CPT/HCPCS: 72040; 72072; 72100

== ENCOUNTER → 2021-09-05 10:23 | Outpatient (CLI) | payer MEDICARE, OTHER, SELFPAY ==
--- NOTE | 2021-09-05 | DI.MG.S_ITS ---
BILATERAL DIGITAL SCREENING MAMMOGRAM 3D/2D WITH CAD: 09/05/2021 CLINICAL: Routine screening. Family history of breast cancer. Comparison is made to exams dated: 09/03/2020 mammogram, 08/11/2019 mammogram, and 07/25/2018 mammogram - [facility]. The tissue of both breasts is extremely dense, which lowers the sensitivity of mammography. Current study was also evaluated with a Computer Aided Detection (CAD) system. There are benign calcifications in both breasts. No significant masses, calcifications, or other findings are seen in either breast. There has been no significant interval change. IMPRESSION: BENIGN There is no mammographic evidence of malignancy. A 1 year screening mammogram is recommended. This exam was interpreted at Station ID: [id number]. NOTE: For mammograms, a report in lay terms will be sent to the patient. Approximately 15% of breast malignancies will not be visualized mammographically. In the management of a palpable breast mass, a negative mammogram must not discourage biopsy of a clinically suspicious lesion. Electronically Signed By: Arslan Claros acr/oscarrad:09/05/2021 11:03:21 letter sent: Normal Exam ACR BI-RADS Category 2: Benign Finding(s) 3342F
== END ==
PROVIDERS: PCP Physician Assistant; Referring Provider Physician Assistant; Visit Provider Physician Assistant
DX: Z12.31 Encounter for screening mammogram for malignant neoplasm of breast (principal); Z80.3 Family history of malignant neoplasm of breast
CPT/HCPCS: 77063; 77067

== ENCOUNTER → 2021-09-30 09:20 | Outpatient (CLI) | payer MEDICARE, OTHER, SELFPAY ==
--- NOTE | 2021-09-30 | DI.US.S_ITS ---
PROCEDURE: US ABDOMEN LIMITED INDICATIONS: ELEVATED LFTS TECHNIQUE: Real-time focused scanning was performed of the abdomen, with image documentation. COMPARISON: None. FINDINGS: The liver is normal in size and demonstrates no focal lesions. No findings of gallstones or sludge are seen. The gallbladder wall is not thickened, measuring 3 mm or less. No specific pericholecystic fluid is seen. The sonographic Marlow sign is negative. There is no biliary dilatation, the common bile duct measures 4 mm. No significant pancreatic abnormality is seen on these images. Incidental note is made of to prominent left kidney cyst measuring up to 6.9 cm and up to 5.3 cm, respectively. IMPRESSION: Normal appearing liver by ultrasound. The gallbladder demonstrates a normal sonographic appearance. No biliary dilatation is seen. Incidental note is made of 2 prominent simple appearing left renal cysts. Dictated by: Jean-Pierre Osborne M.D. on 09/30/2021 at 9:08 Approved by: Jean-Pierre Osborne M.D. on 09/30/2021 at 9:09
== END ==
PROVIDERS: PCP Physician Assistant; Referring Provider Physician Assistant; Visit Provider Physician Assistant
DX: R79.89 Other specified abnormal findings of blood chemistry (principal); N28.1 Cyst of kidney, acquired
CPT/HCPCS: 76705

== ENCOUNTER → 2021-11-13 16:05 | Outpatient (CLI) | payer MEDICARE, OTHER, SELFPAY ==
[2021-11-13 16:48] LABS: Appearance Urine UA CLEAR; Bilirubin Urine UA NEGATIVE (NEGATIVE); Color Urine UA YELLOW; Glucose Urine UA NEGATIVE (Negative); Ketones Urine UA NEGATIVE (NEGATIVE); Leukocyte Esterase Urine UA NEGATIVE (NEGATIVE); Nitrite Urine UA NEGATIVE (Negative); Occult Blood Urine UA NEGATIVE (Negative); Protein Urine UA NEGATIVE (Negative); Specific Gravity Urine UA 1.015 (1.000-1.035); Urobilinogen Urine UA 0.2 E.U./dL (0.2)
[2021-11-13 16:51] LABS: pH Urine UA 6.5 (4.5-8.0)
[2021-11-13 18:28] LABS: Bacteria Urine None Seen; Culture Indicated Urine Cult Not Indicated; RBC Urine None Seen (0-5/HPF); Squamous Epithelial Cell Urine None Seen (0-5/HPF); WBC Urine None Seen (0-5/HPF)
== END ==
PROVIDERS: PCP Physician Assistant; Referring Provider Neurological Surgery; Visit Provider Neurological Surgery
DX: Z01.812 Encounter for preprocedural laboratory examination (principal)
CPT/HCPCS: 81001

== ENCOUNTER → 2022-08-10 15:47 | Outpatient (CLI) | payer MEDICARE, OTHER, SELFPAY ==
--- NOTE | 2022-08-10 | DI.MRI.S_ITS ---
PROCEDURE: MR KNEE LT WO CON INDICATIONS: Effusion, left knee TECHNIQUE: Noncontrast sagittal PD fast spin echo and T2 fast spin echo with fat saturation, sagittal 3-D FLASH with fat saturation; coronal T1 spin echo and PD fast spin echo with fat saturation, and axial PD fast spin echo with fat saturation through the knee. COMPARISON: [facility], MR, KNEE WITHOUT CONTRAST, 09/04/2015, 17:56. FINDINGS: Image quality: Excellent. Menisci: Oblique tear involving posterior horn of medial meniscus is seen extending to inferior articulating surface. There is no focal lateral meniscal tear. The meniscal root ligaments appear intact. Cruciate ligaments: The anterior cruciate ligament is thickened with intrasubstance T2 hyperintense signal. The posterior cruciate ligament also appears thickened. Medial structures: The medial collateral ligament appears intact. The posterior oblique ligament, semimembranosus tendon insertions, oblique popliteal ligament, and meniscocapsular junction appear intact. Visualized portions of the pes anserinus tendons appear normal. No abnormal bursal fluid. Lateral structures: The lateral collateral ligament, long and short heads of the biceps femoris tendon appear intact. The popliteus tendon appears normal; the popliteofibular ligament appears intact. Iliotibial band appears normal. Anterior structures: The quadriceps and patellar tendons appear intact. Patellar alignment is normal. No femoral trochlear dysplasia or ventral trochlear prominence. No edema in the infrapatellar fat pad. Bones and cartilage: No bone marrow contusions or fractures. Hunj-to-wjokyvrd tricompartmental osteoarthritis and chondromalacia is seen most notably in medial femoral tibial compartment and lateral portion of patellofemoral compartment near apex. Joint space: There is small knee joint fluid. There is a small Yu's cyst. Normal appearing synovial plicae are incidentally noted. IMPRESSION: 1. Oblique tear involving posterior horn of medial meniscus extending to inferior articulating surface. No focal lateral meniscal tear. 2. Moderate grade intrasubstance partial-thickness tear involving anterior cruciate ligament. Low-grade posterior cruciate ligament sprain. No full-thickness cruciate ligament rupture. 3. Wzma-xj-uukxhhue tricompartmental osteoarthritis and chondromalacia most notably in medial femoral tibial compartment and lateral portion of patellofemoral compartment as above. 4. Small amount of joint effusion and a small popliteal cyst. No gross loose bodies. Dictated by: Jayjay Mayers M.D. on 08/10/2022 at 16:50 Approved by: Jayjay Mayers M.D. on 08/11/2022 at 9:38
== END ==
PROVIDERS: PCP Internal Medicine; Referring Provider Physician Assistant; Visit Provider Physician Assistant
DX: S83.242A Other tear of medial meniscus, current injury, left knee, initial encounter (principal); S83.512A Sprain of anterior cruciate ligament of left knee, initial encounter; S83.522A Sprain of posterior cruciate ligament of left knee, initial encounter; M17.12 Unilateral primary osteoarthritis, left knee; M22.42 Chondromalacia patellae, left knee; M71.22 Synovial cyst of popliteal space [Baker], left knee; M25.462 Effusion, left knee
CPT/HCPCS: 73721

== ENCOUNTER → 2022-09-19 | Outpatient (CLI) | payer MEDICARE, OTHER, SELFPAY ==
--- NOTE | 2022-09-19 11:02 | DI.MG.S_ITS ---
BILATERAL DIGITAL SCREENING MAMMOGRAM 3D/2D WITH CAD: 09/19/2022 CLINICAL: Routine screening. Family history of breast cancer. Comparison is made to exams dated: 09/05/2021 mammogram, 09/03/2020 mammogram, and 08/11/2019 mammogram - [facility]. Both breasts are extremely dense, which lowers the sensitivity of mammography (category d />75% glandular tissue). Current study was also evaluated with a Computer Aided Detection (CAD) system. There are benign calcifications in both breasts. No significant masses, calcifications, or other findings are seen in either breast. There has been no significant interval change. IMPRESSION: BENIGN There is no mammographic evidence of malignancy. A 1 year screening mammogram is recommended. Based on the Tyrer Cuzick model (a risk assessment model) the patient's lifetime risk is 10.8% and her 10 year risk is 0.0%. According to the ACR, ACS, and NCCN guidelines, an annual breast MRI exam along with mammogram is recommended if the patient's lifetime risk is 20% or greater. This exam was interpreted at Station ID: [id number]. NOTE: For mammograms, a report in lay terms will be sent to the patient. Approximately 15% of breast malignancies will not be visualized mammographically. In the management of a palpable breast mass, a negative mammogram must not discourage biopsy of a clinically suspicious lesion. Electronically Signed By: Baltazar lopez/rafita:09/21/2022 07:55:41 letter sent: Normal Exam ACR BI-RADS Category 2: Benign Finding(s) 3342F
== END ==
PROVIDERS: PCP Internal Medicine; Referring Provider Internal Medicine; Visit Provider Internal Medicine
DX: Z12.31 Encounter for screening mammogram for malignant neoplasm of breast (principal); Z80.3 Family history of malignant neoplasm of breast
CPT/HCPCS: 77063; 77067

== ENCOUNTER → 2023-03-22 12:27 | Outpatient (CLI) | payer MEDICARE, OTHER, SELFPAY ==
[2023-03-22 14:29] LABS: Add Manual Diff / Slide Review NO; Basophils Absolute Auto 0 /uL (0-100); Basophils Percent Auto 0.3 % (0-2); Eosinophils Absolute Auto 0 /uL (0-450); Eosinophils Percent Auto 1.1 % (2-4); Hematocrit 29.7 % (36-46); Hemoglobin 10.3 g/dL (12.0-16.0); Lymphocytes Absolute Auto 1200 /uL (1100-4500); Lymphocytes Percent Auto 30.8 % (25-40); Mean Corpuscular HGB Conc 34.7 % (30-36); Mean Corpuscular Hemoglobin 35.6 PG (26-34); Mean Corpuscular Volume 102.7 fL (80-100); Monocytes Absolute Auto 400 /uL (0-900); Monocytes Percent Auto 9.5 % (3-14); Neutrophils Absolute Auto 2300 /uL (1500-7000); Neutrophils Percent Auto 58.3 % (50-75); Platelet Count 237 X10^3/uL (150-400); Red Blood Cell Count 2.89 X10^6/uL (4.0-5.2); Red Cell Distribution Width 15.2 % (11.6-14.8); White Blood Cell Count 3.9 X10^3/uL (4.5-11.0)
[2023-03-22 14:46] LABS: Alanine Aminotransferase 31 IU/L (<35); Albumin 4.7 g/dL (3.5-5.0); Alkaline Phosphatase 75 U/L (38-126); Aspartate Aminotransferase 41 IU/L (14-36); BUN Creatinine Ratio 31.7 (6-22); Bilirubin Total 0.4 mg/dL (0.2-1.3); Blood Urea Nitrogen 19 mg/dL (7-17); C-Reactive Protein Quant < 0.5 mg/dL (<1.0); Calcium 9.9 mg/dL (8.4-10.2); Carbon Dioxide 26 mmol/L (22-32); Chloride 103 mmol/L (98-107); Estimated Glomerular Filt Rate > 60 mL/min (>60); Globulin 2.4 g/dL (1.7-4.1); Glucose 93 mg/dL (80-110); HEMOLYSIS < 15 (0-50); Potassium 4.4 mmol/L (3.4-5.1); Sodium 137 mmol/L (137-145); Total Protein 7.1 g/dL (6.3-8.2)
[2023-03-22 15:01] LABS: Erythrocyte Sedimentation Rate 10 MM/HR (0-20)
== END ==
PROVIDERS: PCP Internal Medicine; Referring Provider Physician Assistant; Visit Provider Physician Assistant
DX: M05.79 Rheumatoid arthritis with rheumatoid factor of multiple sites without organ or systems involvement (principal)
CPT/HCPCS: 36415; 80053; 85025; 85651; 86140

== ENCOUNTER → 2023-06-25 07:00 | Outpatient (CLI) | payer MEDICARE, OTHER, SELFPAY ==
[2023-06-25 07:35] LABS: Add Manual Diff / Slide Review NO; Basophils Absolute Auto 0 /uL (0-100); Basophils Percent Auto 0.4 % (0-2); Eosinophils Absolute Auto 100 /uL (0-450); Hematocrit 30.1 % (36-46); Hemoglobin 10.4 g/dL (12.0-16.0); Lymphocytes Absolute Auto 1500 /uL (1100-4500); Lymphocytes Percent Auto 46.1 % (25-40); Mean Corpuscular HGB Conc 34.5 % (30-36); Mean Corpuscular Hemoglobin 34.6 PG (26-34); Mean Corpuscular Volume 100.3 fL (80-100); Monocytes Absolute Auto 300 /uL (0-900); Monocytes Percent Auto 9.9 % (3-14); Neutrophils Absolute Auto 1300 /uL (1500-7000); Neutrophils Percent Auto 40.6 % (50-75); Platelet Count 263 X10^3/uL (150-400); White Blood Cell Count 3.2 X10^3/uL (4.5-11.0)
[2023-06-25 08:41] LABS: Aspartate Aminotransferase 35 IU/L (14-36); BUN Creatinine Ratio 26.7 (6-22); Blood Urea Nitrogen 16 mg/dL (7-17); Calcium 9.8 mg/dL (8.4-10.2); Carbon Dioxide 26 mmol/L (22-32); Chloride 97 mmol/L (98-107); Cholesterol 182 mg/dL (140-199); Estimated Glomerular Filt Rate > 60 mL/min (>60); Glucose 90 mg/dL (80-110); HDL Cholesterol 64 mg/dL (40-60); HEMOLYSIS < 15 (0-50); LDL Cholesterol Calculated 110 mg/dL (<100); Potassium 4.4 mmol/L (3.4-5.1); Sodium 132 mmol/L (137-145); Triglycerides 42 mg/dL (35-150)
[2023-06-29 08:48] LABS: Lipoprotein (a) 21.1 nmol/L (<75.0)
== END ==
PROVIDERS: PCP Internal Medicine; Referring Provider Internal Medicine; Visit Provider Internal Medicine
DX: D64.9 Anemia, unspecified (principal); E78.2 Mixed hyperlipidemia
CPT/HCPCS: 36415; 80048; 80061; 83695; 84450; 85025

== ENCOUNTER → 2023-10-04 15:17 | Outpatient (CLI) | payer MEDICARE, OTHER, SELFPAY ==
--- NOTE | 2023-10-04 15:20 | DI.MG.S_ITS ---
BILATERAL DIGITAL SCREENING MAMMOGRAM 3D/2D WITH CAD: 10/04/2023 CLINICAL: Routine screening. Family history of breast cancer. Comparison is made to exams dated: 09/19/2022 mammogram, 09/05/2021 mammogram, and 09/03/2020 mammogram - [facility]. Both breasts are extremely dense, which lowers the sensitivity of mammography (category d />75% glandular tissue). Current study was also evaluated with a Computer Aided Detection (CAD) system. There are benign calcifications in both breasts. No significant masses, calcifications, or other findings are seen in either breast. There has been no significant interval change. IMPRESSION: BENIGN There is no mammographic evidence of malignancy. A 1 year screening mammogram is recommended. Based on the Tyrer Cuzick model (a risk assessment model) the patient's lifetime risk is 9.7% and her 10 year risk is 0.0%. According to the ACR, ACS, and NCCN guidelines, an annual breast MRI exam along with mammogram is recommended if the patient's lifetime risk is 20% or greater. This exam was interpreted at Station ID: [id number]. NOTE: For mammograms, a report in lay terms will be sent to the patient. Approximately 15% of breast malignancies will not be visualized mammographically. In the management of a palpable breast mass, a negative mammogram must not discourage biopsy of a clinically suspicious lesion. Electronically Signed By: Amauri johns/rafita:10/05/2023 08:15:33 letter sent: Normal Exam ACR BI-RADS Category 2: Benign Finding(s) [id number]
== END ==
PROVIDERS: PCP Internal Medicine; Referring Provider Internal Medicine; Visit Provider Internal Medicine
DX: Z12.31 Encounter for screening mammogram for malignant neoplasm of breast (principal); R92.323 Mammographic fibroglandular density, bilateral breasts; Z80.3 Family history of malignant neoplasm of breast
CPT/HCPCS: 77063; 77067

== ENCOUNTER → 2023-11-16 14:16 | Outpatient (CLI) | payer MEDICARE, OTHER, SELFPAY ==
[2023-11-16 14:49] LABS: Add Manual Diff / Slide Review NO; Basophils Absolute Auto 0 /uL (0-100); Basophils Percent Auto 0.3 % (0-2); Eosinophils Absolute Auto 100 /uL (0-450); Eosinophils Percent Auto 1.7 % (2-4); Hematocrit 27.3 % (36-46); Hemoglobin 9.8 g/dL (12.0-16.0); Lymphocytes Absolute Auto 1300 /uL (1100-4500); Mean Corpuscular HGB Conc 35.7 % (30-36); Mean Corpuscular Hemoglobin 36.4 PG (26-34); Monocytes Absolute Auto 400 /uL (0-900); Monocytes Percent Auto 9.1 % (3-14); Neutrophils Absolute Auto 2600 /uL (1500-7000); Neutrophils Percent Auto 58.9 % (50-75); Platelet Count 258 X10^3/uL (150-400); Red Blood Cell Count 2.68 X10^6/uL (4.0-5.2); Red Cell Distribution Width 16.8 % (11.6-14.8); White Blood Cell Count 4.4 X10^3/uL (4.5-11.0)
== END ==
PROVIDERS: Internal Medicine Hematology & Oncology; PCP Internal Medicine; Referring Provider Internal Medicine; Visit Provider Internal Medicine
DX: D47.2 Monoclonal gammopathy (principal); D64.9 Anemia, unspecified
CPT/HCPCS: 85025

== ENCOUNTER → 2024-03-24 10:16 | Outpatient (CLI) | payer MEDICARE, OTHER, SELFPAY ==
[2024-03-24 12:09] LABS: Alanine Aminotransferase 34 IU/L (<35); Albumin 4.8 g/dL (3.5-5.0); Alkaline Phosphatase 52 U/L (38-126); Aspartate Aminotransferase 42 IU/L (14-36); BUN Creatinine Ratio 22.6 (6-22); Bilirubin Total 0.6 mg/dL (0.2-1.3); Blood Urea Nitrogen 14 mg/dL (7-17); Calcium 9.4 mg/dL (8.4-10.2); Carbon Dioxide 27 mmol/L (22-32); Chloride 101 mmol/L (98-107); Estimated Glomerular Filt Rate > 60 mL/min (>60); Globulin 2.4 g/dL (1.7-4.1); Glucose 98 mg/dL (80-110); HEMOLYSIS < 15 (0-50); Potassium 4.3 mmol/L (3.4-5.1); Sodium 135 mmol/L (137-145); Total Protein 7.2 g/dL (6.3-8.2)
== END ==
PROVIDERS: PCP Internal Medicine; Referring Provider Internal Medicine Rheumatology; Visit Provider Internal Medicine Rheumatology
DX: M05.79 Rheumatoid arthritis with rheumatoid factor of multiple sites without organ or systems involvement (principal); Z79.899 Other long term (current) drug therapy
CPT/HCPCS: 36415; 80053

== ENCOUNTER → 2024-07-24 12:44 | Outpatient (CLI) | payer MEDICARE, OTHER, SELFPAY ==
--- NOTE | 2024-07-24 12:46 | DI.RAD.S_ITS ---
PROCEDURE: XR DEXA AXIAL SKELETON INDICATIONS: SCREENING FOR OSTEOPOROSIS COMPARISON: [facility], KUMAR, XR DEXA AXIAL SKELETON, 08/11/2018, 15:35. FINDINGS: Lumbar Spine: Bone mineral density 1.057 g/cm2, T score 0, compared to 0.7. Left Femoral Neck: Bone mineral density 0.630 g/cm2, T score -2.0, compared to -1.4. Left Hip: Bone mineral density 0.794 g/cm2, T score -1.2, compared to -1.1. Fracture Risk Calculation (when applicable): 10-year fracture risk of a major osteoporotic fracture 15 percent and of a hip fracture 4.9 percent. (T score greater or equal to -1.0 to: NORMAL) (T score from -1.1 to -2.4: OSTEOPENIA) (T score less than or equal to -2.5: OSTEOPOROSIS) IMPRESSION: Progressive bone mineral density loss most notable in the left femoral neck now demonstrating moderate osteopenia. Follow-up guidelines as follows: Osteoporosis: Consider a repeat DEXA and Vertebral Fracture Assessment (VFA) exam in 2 years or sooner if medically necessary, to reassess this patient's status. Osteopenia: Consider a repeat DEXA in 2-3 years to reassess this patient's status, or if there is a new clinical indication. Normal: Consider a repeat DEXA in 5 years or sooner, or if there is a new clinical indication. All treatment decisions require clinical judgment and consideration of individual patient factors, including patient preferences, comorbidities, previous drug use, risk factors not captured in the FRAX model (e.g., frailty, falls, vitamin D deficiency, increased bone turnover, interval significant decline in bone density ) and possible under- or over-estimation of fracture risk by FRAX. In addition, the NOF Guide recommends that FDA-approved medical therapies be considered in postmenopausal women and men age >= 50 years with a: * Hip or vertebral (clinical or morphometric) fracture * T-score of <=-2.5 at the spine or hip * Ten-year fracture probability by FRAX of >= 3% for hip fracture or >=20% for major osteoporotic fracture. Dictated by: Callie Ferguson M.D. on 07/24/2024 at 15:28 Approved by: Callie Ferguson M.D. on 07/24/2024 at 15:35
== END ==
PROVIDERS: PCP Internal Medicine; Referring Provider Physician Assistant; Visit Provider Physician Assistant
DX: M81.0 Age-related osteoporosis without current pathological fracture (principal); M05.9 Rheumatoid arthritis with rheumatoid factor, unspecified; Z79.899 Other long term (current) drug therapy
CPT/HCPCS: 77080

== ENCOUNTER → 2024-11-25 12:58 | Outpatient (CLI) | payer MEDICARE, OTHER, SELFPAY ==
--- NOTE | 2024-11-25 12:59 | DI.MG.S_ITS ---
MM screening mammo BI: 11/25/2024. BI-RADS: 2 CLINICAL: 79-year old female for bilateral screening mammogram. Tyrer-Cuzick lifetime risk of 4.0%. No personal or first-degree family history of breast cancer. The patient had prior bilateral breast biopsies. PRIOR EXAMS 10/04/2023, 09/19/2022, 09/05/2021, 09/03/2020. MAMMOGRAPHY TECHNIQUE: 2D and 3D (tomosynthesis) digital mammographic views obtained, with additional images as needed for full coverage. Current study was also evaluated with a Computer Aided Detection (CAD) system. DENSITY D. The breasts are extremely dense, which lowers the sensitivity of mammography. MAMMOGRAPHY FINDINGS Bilateral: Typically-benign vascular calcifications noted. IMPRESSION: * No evidence of malignancy with benign findings. RECOMMENDATIONS Bilateral * Annual screening mammography. OVERALL ASSESSMENT CATEGORY BI-RADS-2: Benign. The [employer] recommends annual screening mammography beginning at age 40 for women with average risk of breast cancer. ELECTRONICALLY SIGNED: Mina Kim M.D. on 11/27/2024 at 07:35:57 AM PT Interpreting Station ID: [id number]
== END ==
PROVIDERS: PCP Internal Medicine; Referring Provider Internal Medicine; Visit Provider Internal Medicine
DX: Z12.31 Encounter for screening mammogram for malignant neoplasm of breast (principal); R92.343 Mammographic extreme density, bilateral breasts
CPT/HCPCS: 77063; 77067

== ENCOUNTER → 2025-04-23 07:52 | Outpatient (CLI) | payer MEDICARE, OTHER, SELFPAY ==
[2025-04-23 08:35] LABS: Hematocrit 26.4 % (36-46); Hemoglobin 9.3 g/dL (12.0-16.0); Lymphocytes Absolute Auto 1100 /uL (1100-4500); Mean Corpuscular HGB Conc 35.4 % (30-36); Mean Corpuscular Hemoglobin 36.7 PG (26-34); Mean Corpuscular Volume 103.8 fL (80-100); Platelet Count 283 X10^3/uL (150-400)
[2025-04-23 09:17] LABS: Add Manual Diff / Slide Review SLIDE REVIEW
[2025-04-23 09:48] LABS: Alanine Aminotransferase 32 IU/L (<35); Albumin 4.6 g/dL (3.5-5.0); Albumin Globulin Ratio 1.9 (1.0-2.8); Alkaline Phosphatase 58 U/L (38-126); Blood Urea Nitrogen 15 mg/dL (7-17); Calcium 8.8 mg/dL (8.4-10.2); Carbon Dioxide 24 mmol/L (22-32); Chloride 102 mmol/L (98-107); Estimated Glomerular Filt Rate > 60 mL/min (>60); Globulin 2.4 g/dL (1.7-4.1); Glucose 101 mg/dL (70-99); HEMOLYSIS < 15 (0-50); Potassium 5.1 mmol/L (3.4-5.1); Sodium 134 mmol/L (137-145); Total Protein 7.0 g/dL (6.3-8.2)
[2025-04-23 10:00] LABS: Anisocytosis 1+; Schistocytes 1+
== END ==
PROVIDERS: PCP Internal Medicine; Referring Provider Internal Medicine; Visit Provider Physician Assistant
DX: M05.9 Rheumatoid arthritis with rheumatoid factor, unspecified (principal); M81.0 Age-related osteoporosis without current pathological fracture
CPT/HCPCS: 36415; 80053; 85025; 85651; 86140